=== PATIENT | male | born 1970 | race American Indian/Alaskan Native ===

== ENCOUNTER 2017-12-23 13:02 | Emergency (ER) | payer SELFPAY ==
[2017-12-23] MEDS ORDERED: MORPHINE IV ONE (14:09)
[2017-12-23] MEDS ORDERED: ZOFRAN IV ONE (14:09)
--- NOTE | 2017-12-23 14:14 | Emergency Department Report ---
ED General Adult HPI - General Chief complaint: Pain General Stated complaint: LEFT KNEE/HIP AND LEG PAIN Time Seen by Provider: 12/23/17 14:00 Source: patient Mode of arrival: Ambulatory Limitations: No Limitations - History of Present Illness Initial comments: Patient is 47 years old male morbidly obese, bedridden, history of hypertension and osteoarthritis. Patient presented to the ER with generalized joint pain mainly hips and knees. Patient is not taking any medicine for his osteoarthritis. Patient denied any fever, nausea or vomiting. He denies any chest pain or shortness of breath. Patient has left knee pressure ulcer and also a pressure ulcer in his left second toe. - Related Data Allergies Allergy/AdvReac Type Severity Reaction Status Date / Time No Known Allergies Allergy Verified 12/23/17 13:14 ED Review of Systems ROS: Stated complaint: LEFT KNEE/HIP AND LEG PAIN Other details as noted in HPI Comment: All other systems reviewed and negative Constitutional: denies: chills, fever Respiratory: denies: cough Cardiovascular: denies: chest pain, palpitations, dyspnea on exertion Gastrointestinal: denies: abdominal pain, nausea, vomiting, diarrhea, constipation, hematemesis Musculoskeletal: arthralgia. denies: back pain Neurological: denies: headache, weakness, numbness, paresthesias, confusion ED Past Medical Hx - Past Medical History Previous Medical History?: Yes Hx Diabetes: Yes - Surgical History Past Surgical History?: No - Social History Smoking Status: Never Smoker Substance Use Type: None ED Physical Exam - General Limitations: No Limitations General appearance: alert, in no apparent distress - Head Head exam: Present: atraumatic, normocephalic, normal inspection - Eye Eye exam: Present: normal appearance, PERRL - ENT ENT exam: Present: normal exam, normal orophraynx, mucous membranes moist - Neck Neck exam: Present: normal inspection, full ROM. Absent: tenderness, meningismus, lymphadenopathy - Respiratory Respiratory exam: Present: normal lung sounds bilaterally. Absent: respiratory distress, wheezes, rales, rhonchi, stridor, chest wall tenderness, accessory muscle use, decreased breath sounds, prolonged expiratory - Cardiovascular Cardiovascular Exam: Present: regular rate, normal rhythm, normal heart sounds - GI/Abdominal GI/Abdominal exam: Present: soft, normal bowel sounds. Absent: distended, tenderness, guarding, rebound, rigid, organomegaly, mass, bruit, pulsatile mass , hernia - Extremities Exam Extremities exam: Present: normal capillary refill, pedal edema, other ( pressure ulcer on left knee and second left toe, good granulation tissue, no greenish discharge or Erythema). Absent: tenderness, joint swelling, calf tenderness - Back Exam Back exam: Present: normal inspection. Absent: CVA tenderness (R), CVA tenderness (L) - Neurological Exam Neurological exam: Present: alert, oriented X3, CN II-XII intact - Skin Skin exam: Present: warm ED Course Vital Signs 12/23/17 12/23/17 13:14 13:21 Temperature 98.6 F Pulse Rate 87 78 Respiratory 16 18 Rate Blood Pressure 150/93 O2 Sat by Pulse 97 97 Oximetry - Reevaluation(s) Reevaluation #1: 12/23/17 16:01 Patient stated that he is feeling much better. He stated that morphine helped his pain a lot. He denied any symptoms at this moment. ED Medical Decision Making - Lab Data Result diagrams: 12/23/17 14:33 12/23/17 15:26 Critical care attestation.: If time is entered above; I have spent that time in minutes in the direct care of this critically ill patient, excluding procedure time. ED Disposition Clinical Impression: Acute pain, Hyperglycemia, Pressure ulcer Disposition: DC-01 TO HOME OR SELFCARE Is pt being admited?: No Condition: Stable Instructions: Diabetes Mellitus Type 2 in Adults (ED), Osteoarthritis (ED)
[2017-12-23 15:04] LABS: Mean Corpuscular HGB Conc 31 % (32-34); Mean Corpuscular Volume 82 fl (84-94); Red Blood Count 5.44 M/mm3 (3.65-5.03); Red Cell Distribution Width 16.3 % (13.2-15.2)
[2017-12-23 15:06] LABS: Hematocrit 44.6 % (35.5-45.6); Hemoglobin 13.7 gm/dl (11.8-15.2); Mean Corpuscular Hemoglobin 25 pg (28-32)
[2017-12-23 15:07] LABS: Platelet Count 273 K/mm3 (140-440)
[2017-12-23 15:49] LABS: Alanine Aminotransferase 13 units/L (7-56); Albumin 2.8 g/dL (3.9-5); BUN/Creatinine Ratio 24; Blood Urea Nitrogen 12 mg/dL (9-20); Hemolysis Index 45
[2017-12-23 19:14] VITALS: BP 123/57
== END 2017-12-23 21:02 | disposition home or self-care (01) ==
LOC: ED 13:02
DX: L89.899 Pressure ulcer of other site, unspecified stage (principal); E11.65 Type 2 diabetes mellitus with hyperglycemia
CPT/HCPCS: 36415; 80053; 85025; 96374; 96375; 99283; J2270; J2405

== ENCOUNTER 2020-10-02 20:59 | Emergency (ER) | payer MEDICARE ==
[2020-10-02] MEDS ORDERED: ALUM-MAG HYDROXIDE-SIMETHICONE 200-200-20MG/5ML ORAL LIQD 30 ML PO ONE (21:16)
[2020-10-02] MEDS ORDERED: ONDANSETRON 4 MG ODT TAB PO ONE (21:16)
[2020-10-02] MEDS ORDERED: oxyCODONE /ACETAMINOPHEN 5-325MG TAB PO ONE (21:16)
[2020-10-02] MEDS ORDERED: ASPIRIN 325 MG TAB PO ONE (21:16)
--- NOTE | 2020-10-02 21:26 | Emergency Department Report ---
ED Chest Pain HPI - General Chief Complaint: Chest Pain Stated Complaint: SOB PUI?: No Time Seen by Provider: 10/02/20 21:15 Source: patient, EMS Mode of arrival: Stretcher Limitations: Physical Limitation - History of Present Illness Initial Comments: Chief plan: "I do not want to take any chances." HPI: This is a 50-year-old male with history of diabetes mellitus, hypertension osteoarthritis and severe obesity who presents with chest pain for the past 3 days. Chest pain felt like "gas". Due to persistent discomfort, patient was concerned enough to call 911. Patient has central sure chest pain. Also has dull chest pain under his left breast. He denies fever, cough, shortness of breath. He denies sick contacts. He lives alone. He has minimal social support. He states that his daughter has "her own life". Patient has been bedbound since 2017 due to severe osteoarthritis of both hips. He has irritation lower abdomen skin breakdown. PCP Dr. Jorge Monroe Patient was evaluated last January 2019 for similar symptoms. VQ scan low probability for pulmonary embolism. Patient was transferred to [facility] via [place] for further treatment evaluation. Patient denies history of heart disease. He denies history of WV or congestive heart failure. He denies history of pulmonary embolism. He is not on anticoagulation. 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 Complaint: chest pain -: Gradual, days(s) (2) Onset: during rest Pain Location: substernal, left chest Severity: mild, moderate Severity scale (0 -10): 6 Quality: sharp, dull Consistency: constant Improves With: nothing Worsens With: nothing, other (No change made with movement cough or inspiration) Treatments Prior to Arrival: other (EMS transport) - Related Data Home Medications Medication Instructions Recorded Confirmed Last Taken No Known Home Medications [No 01/25/19 01/25/19 Unknown Reported Home Medications] Allergies Allergy/AdvReac Type Severity Reaction Status Date / Time No Known Allergies Allergy Verified 01/25/19 01:56 Heart Score - HEART Score History: Slightly suspicious EKG: Non-specific Age: 45-65 Risk factors: 1-2 risk factors Troponin: < normal limit HEART Score: 3 ED Review of Systems ROS: Stated complaint: SOB Other details as noted in HPI Comment: All other systems reviewed and negative Constitutional: denies: fever, malaise Respiratory: denies: cough, shortness of breath Cardiovascular: chest pain Gastrointestinal: denies: abdominal pain, nausea, vomiting ED Past Medical Hx - Past Medical History Previous Medical History?: Yes Hx Hypertension: Yes Hx Diabetes: Yes Additional medical history: bi-lat hip osteoarthritis - Surgical History Past Surgical History?: Yes Additional Surgical History: Bone graft right hip - Social History Smoking Status: Never Smoker Substance Use Type: None - Medications Home Medications: Home Medications Medication Instructions Recorded Confirmed Last Taken Type No Known Home Medications [No 01/25/19 01/25/19 Unknown History Reported Home Medications] ED Physical Exam - General Limitations: Physical Limitation General appearance: alert, in no apparent distress, other (Pleasant, insightful, poor hygiene) - Head Head exam: Present: atraumatic, normocephalic - Eye Eye exam: Present: normal appearance - ENT ENT exam: Present: mucous membranes moist - Neck Neck exam: Present: normal inspection, full ROM - Respiratory Respiratory exam: Present: normal lung sounds bilaterally. Absent: respiratory distress, wheezes, rales, rhonchi - Cardiovascular Cardiovascular Exam: Present: regular rate, normal rhythm, normal heart sounds. Absent: systolic murmur, diastolic murmur, rubs, gallop - GI/Abdominal GI/Abdominal exam: Present: soft, normal bowel sounds. Absent: distended, tenderness, guarding, rebound - Rectal Rectal exam: Present: deferred - Extremities Exam Extremities exam: Present: normal inspection - Neurological Exam Neurological exam: Present: alert, oriented X3 - Psychiatric Psychiatric exam: Present: normal affect, normal mood - Skin Skin exam: Present: warm, dry, normal color, other (Moist skin, irritation noted at the lower abdomen). Absent: rash ED Course Vital Signs 10/02/20 10/02/20 10/02/20 21:12 21:17 22:00 Temperature 99.1 F Pulse Rate 94 H 96 H 97 H Respiratory 11 L 22 21 Rate Blood Pressure 136/67 Blood Pressure 145/83 [Right] O2 Sat by Pulse 98 98 Oximetry 10/02/20 10/03/20 10/03/20 23:00 00:00 01:00 Temperature Pulse Rate 83 83 93 H Respiratory 15 18 15 Rate Blood Pressure 97/42 101/63 97/50 Blood Pressure [Right] O2 Sat by Pulse 86 94 96 Oximetry RANDY score - Randy Score Age > 65: (0) No Aspirin use within the Past 7 Days: (0) No 3 or more CAD Risk Factors: (1) Yes 2 or more Angina events in past 24 hrs: (1) Yes Known CAD with more than 50% Stenosis: (0) No Elevated Cardiac Markers: (0) No ST Deviation Greater than 0.5mm: (0) No RANDY Score: 2 ED Medical Decision Making - Lab Data Result diagrams: 10/02/20 21:20 10/02/20 21:20 Laboratory Results - last 24 hr 10/02/20 10/02/20 10/02/20 21:20 21:20 21:20 WBC 9.2 RBC 5.25 H Hgb 13.4 Hct 42.0 MCV 80 L MCH 26 L MCHC 32 RDW 16.6 H Plt Count 270 Add Manual Diff Complete Total Counted 100 Seg Neuts % (Manual) 83.0 H Lymphocytes % (Manual) 11.0 L Monocytes % (Manual) 1.0 Eosinophils % (Manual) 5.0 H Nucleated RBC % Not Reportable Seg Neutrophils # Man 7.6 Band Neutrophils # 0.0 Lymphocytes # (Manual) 1.0 L Abs React Lymphs (Man) 0.0 Monocytes # (Manual) 0.1 Eosinophils # (Manual) 0.5 H Basophils # (Manual) 0.0 Metamyelocytes # 0.0 Myelocytes # 0.0 Promyelocytes # 0.0 Blast Cells # 0.0 WBC Morphology Not Reportable Hypersegmented Neuts Not Reportable Hyposegmented Neuts Not Reportable Hypogranular Neuts Not Reportable Smudge Cells Not Reportable Toxic Granulation Not Reportable Toxic Vacuolation Not Reportable Dohle Bodies Not Reportable Pelger-Huet Anomaly Not Reportable Leonor Rods Not Reportable Platelet Estimate Consistent w auto Clumped Platelets Not Reportable Plt Clumps, EDTA Not Reportable Large Platelets Not Reportable Giant Platelets Not Reportable Platelet Satelliting Not Reportable Plt Morphology Comment Not Reportable RBC Morphology Normal Dimorphic RBCs Not Reportable Polychromasia Not Reportable Hypochromasia Not Reportable Poikilocytosis Not Reportable Anisocytosis Not Reportable Microcytosis Not Reportable Macrocytosis Not Reportable Spherocytes Not Reportable Pappenheimer Bodies Not Reportable Sickle Cells Not Reportable Target Cells Not Reportable Tear Drop Cells Not Reportable Ovalocytes Not Reportable Helmet Cells Not Reportable Mark-[place] Bodies Not Reportable [place] Rings Not Reportable [place] Cells Not Reportable Bite Cells Not Reportable Crenated Cell Not Reportable Elliptocytes Not Reportable Acanthocytes (Spur) Not Reportable Rouleaux Not Reportable Hemoglobin C Crystals Not Reportable Schistocytes Not Reportable Malaria parasites Not Reportable Carlos Alberto Bodies Not Reportable Hem Pathologist Commnt No D-Dimer 293.25 H Sodium 135 L Potassium 4.1 Chloride 98.3 Carbon Dioxide 25 Anion Gap 16 BUN 25 H Creatinine 1.0 Estimated GFR > 60 BUN/Creatinine Ratio 25 Glucose 153 H Calcium 9.4 Troponin T < 0.010 10/03/20 Unknown WBC RBC Hgb Hct MCV MCH MCHC RDW Plt Count Add Manual Diff Total Counted Seg Neuts % (Manual) Lymphocytes % (Manual) Monocytes % (Manual) Eosinophils % (Manual) Nucleated RBC % Seg Neutrophils # Man Band Neutrophils # Lymphocytes # (Manual) Abs React Lymphs (Man) Monocytes # (Manual) Eosinophils # (Manual) Basophils # (Manual) Metamyelocytes # Myelocytes # Promyelocytes # Blast Cells # WBC Morphology Hypersegmented Neuts Hyposegmented Neuts Hypogranular Neuts Smudge Cells Toxic Granulation Toxic Vacuolation Dohle Bodies Pelger-Huet Anomaly Leonor Rods Platelet Estimate Clumped Platelets Plt Clumps, EDTA Large Platelets Giant Platelets Platelet Satelliting Plt Morphology Comment RBC Morphology Dimorphic RBCs Polychromasia Hypochromasia Poikilocytosis Anisocytosis Microcytosis Macrocytosis Spherocytes Pappenheimer Bodies Sickle Cells Target Cells Tear Drop Cells Ovalocytes Helmet Cells Mark-[place] Bodies [place] Rings [place] Cells Bite Cells Crenated Cell Elliptocytes Acanthocytes (Spur) Rouleaux Hemoglobin C Crystals Schistocytes Malaria parasites Carlos Alberto Bodies Hem Pathologist Commnt D-Dimer Sodium Potassium Chloride Carbon Dioxide Anion Gap BUN Creatinine Estimated GFR BUN/Creatinine Ratio Glucose Calcium Troponin T < 0.010 - EKG Data -: EKG Interpreted by Me EKG shows normal: sinus rhythm, axis, intervals, ST-T waves Rate: normal - EKG Data When compared to previous EKG there are: no significant change Interpretation: no acute changes 10/02/20 21:54 EKG obtained 2148 EKG interpreted by me Normal sinus rhythm rate 85 bpm normal axis normal intervals poor R wave progression anterior leads nonischemic T wave pattern no ST elevation EKG unchanged from January 25, 2019 10/02/20 21:55 - Radiology Data Radiology results: report reviewed, image reviewed CHEST 1 VIEW 10/02/2020 9:02 PM INDICATION / CLINICAL INFORMATION: MAIN. COMPARISON: 01/25/2019. FINDINGS: SUPPORT DEVICES: None. HEART / MEDIASTINUM: No significant abnormality. LUNGS / PLEURA: No significant pulmonary or pleural abnormality. No pneumothorax. ADDITIONAL FINDINGS: No significant additional findings. IMPRESSION: No acute cardiopulmonary abnormality Perfusion Scan HISTORY: chest pain severe obesity. TECHNIQUE: Patient was given 5.5 mCi of technetium MAA. COMPARISON: Chest x-ray from today FINDINGS: Symmetric radiotracer uptake throughout the lungs with no photopenic defect identified. IMPRESSION: Unremarkable exam. - Medical Decision Making 1. Chest pain: Atypical for ACS. With equivocal level D-dimer and unremarkable perfusion scan, pulmonary embolism has been ruled out. Troponin x2 negative. WV has effectively been ruled out. I do not detect emergent cause of chest pain such as dissection, pneumothorax. Patient encouraged to follow-up with his PCP. I do not feel that patient will benefit or require urgent cardiology follow-up. Heart score 3 with admission to outside hospital for chest pain evaluation last year. 2. Skin irritation due to moist environment under pannus: Recommended keeping area dry. Critical care attestation.: If time is entered above; I have spent that time in minutes in the direct care of this critically ill patient, excluding procedure time. ED Disposition Clinical Impression: Acute chest pain Disposition: DC-01 TO HOME OR SELFCARE Is pt being admited?: No Does the pt Need Aspirin: No Condition: Stable Instructions: Nonspecific Chest Pain, Adult, [id number], Chest Pain (ED) Additional Instructions: Please contact your [place] physician for follow-up.
[2020-10-02 21:39] LABS: Hemoglobin 13.4 gm/dl (11.8-15.2); Mean Corpuscular HGB Conc 32 % (32-34); Mean Corpuscular Volume 80 fl (84-94); Platelet Count 270 K/mm3 (140-440); Red Blood Count 5.25 M/mm3 (3.65-5.03); Red Cell Distribution Width 16.6 % (13.2-15.2)
[2020-10-02 21:59] LABS: BUN/Creatinine Ratio 25; Blood Urea Nitrogen 25 mg/dL (9-20); Calcium 9.4 mg/dL (8.4-10.2); Hemolysis Index 5
--- NOTE | 2020-10-02 22:10 | XRay Report ---
CHEST 1 VIEW 10/02/2020 9:02 PM INDICATION / CLINICAL INFORMATION: MAIN. COMPARISON: 01/25/2019. FINDINGS: SUPPORT DEVICES: None. HEART / MEDIASTINUM: No significant abnormality. LUNGS / PLEURA: No significant pulmonary or pleural abnormality. No pneumothorax. ADDITIONAL FINDINGS: No significant additional findings. IMPRESSION: No acute cardiopulmonary abnormality. Signer Name: Thompson Ibarra MD Signed: 10/02/2020 10:05 PM Workstation Name: [id number]
[2020-10-02 22:14] LABS: Platelet Estimate Consistent w Auto; RBC Morphology Normal; Total Cells Counted 100
--- NOTE | 2020-10-02 23:14 | Nuclear Medicine Report ---
Perfusion Scan HISTORY: chest pain severe obesity. TECHNIQUE: Patient was given 5.5 mCi of technetium MAA. COMPARISON: Chest x-ray from today FINDINGS: Symmetric radiotracer uptake throughout the lungs with no photopenic defect identified. IMPRESSION: Unremarkable exam. Signer Name: Yogesh Navarro MD Signed: 10/02/2020 11:10 PM Workstation Name: [id number]
[2020-10-03 05:32] VITALS: BP 93/60
== END 2020-10-03 17:00 | disposition home or self-care (01) ==
LOC: ED 20:59
DX: R07.89 Other chest pain (principal); I10 Essential (primary) hypertension; E11.9 Type 2 diabetes mellitus without complications; Z98.890 Other specified postprocedural states
CPT/HCPCS: 36415; 71045; 78580; 80048; 82962; 84484; 85007; 85025; 85379; 93005; 99284; A9540; Q0162